=== PATIENT | female | born 1985 | race Caucasian/White ===

== ENCOUNTER 2018-02-25 18:53 | Emergency (ER) | payer BC ==
--- NOTE | 2018-02-25 19:30 | EDPHY ---
H & P Time Seen by Provider: 02/25/18 19:10 HPI/ROS: Chief complaint. Swelling to face and hands, rash HPI. Patient is a 32-year-old female diagnosed with Stefano's disease in about 6 months ago. It manifested as hives and itching. She is on chronic antihistamines. She has noticed unusual amount of swelling to her face neck and hands the last 2 days. She has hives on her left arm and left leg. Denies new skin products foods cleansers. No fever cough. Not sick. She has been using Pepcid, Shy, Benadryl with inadequate relief. No difficulty breathing or swallowing. ROS 10 systems were reviewed and negative with the exception of the elements mentioned in the history of present illness Past Medical/Surgical History: Stefano's disease Social History: Single, nonsmoker, no alcohol Smoking Status: Never smoked Physical Exam: General Appearance: Alert pleasant well-developed female mild distress vital signs are stable Eyes: Pupils equal and round no pallor or injection. ENT, pharynx without injection. No stridor. It is normal speech. Swallowing secretions Respiratory: There are no retractions, lungs are clear to auscultation. Cardiovascular: Regular rate and rhythm. Gastrointestinal: Abdomen is soft and nontender, no masses, bowel sounds normal. Neurological: Awake and alert, sensory and motor exams grossly normal. Skin: Erythematous hive type rash on the left forearm and some on the anterior left ankle. None on chest back abdomen Musculoskeletal: Neck is supple nontender. Extremities symmetrical, full range of motion. Psychiatric: Patient is oriented X 3, there is no agitation. Constitutional: Initial Vital Signs Temperature (C) 36.3 C 02/25/18 18:57 Heart Rate 85 02/25/18 18:57 Respiratory Rate 18 02/25/18 18:57 Blood Pressure 169/113 H 02/25/18 18:57 O2 Sat (%) 96 02/25/18 18:57 O2 Delivery Mode Room Air Allergies/Adverse Reactions: No Known Allergies Allergy (Unverified 02/25/18 18:54) Home Medications: Medication Instructions Recorded Shy Allergy 02/25/18 Benadryl 02/25/18 Pepcid 02/25/18 Probiotic 02/25/18 Vit D3-Vit K/Berberine/Hops 01/02/19 predniSONE 40 mg PO DAILY #8 tablet 02/25/18 Medical Decision Making Procedures: Prednisone orally ED Course/Re-evaluation: Re-evaluation at 8:50 p.m.. Patient is stable. Patient and I discussed laboratory evaluation, treatment plan including criteria for return importance of follow-up and further evaluation. She expresses understanding and agreement Differential Diagnosis: This appears to be mild allergic reaction. She has itching skin and hives. She has some facial swelling as well as swelling to her hands. I do not find any information about hives related Stefano's except that this patient tells me that is how her Stefano's disease was discovered as part of a workup for hives. I also considered congestive heart failure. - Data Points Laboratory Results: Laboratory Results 02/25/18 20:14 02/25/18 20:14 02/25/18 02/25/18 20:14 20:14 WBC 9.14 10^3/uL 10^3/uL (3.80-9.50) RBC 4.12 10^6/uL L 10^6/uL (4.18-5.33) Hgb 12.7 g/dL g/dL (12.6-16.3) Hct 38.2 % % (38.0-47.0) MCV 92.7 fL fL (81.5-99.8) MCH 30.8 pg pg (27.9-34.1) MCHC 33.2 g/dL g/dL (32.4-36.7) RDW 12.9 % % (11.5-15.2) Plt Count 272 10^3/uL 10^3/uL (150-400) MPV 8.5 fL L fL (8.7-11.7) Neut % (Auto) 55.8 % % (39.3-74.2) Lymph % (Auto) 33.9 % % (15.0-45.0) Stephenson % (Auto) 7.3 % % (4.5-13.0) Eos % (Auto) 2.4 % % (0.6-7.6) Baso % (Auto) 0.3 % % (0.3-1.7) Nucleat RBC Rel Count 0.0 % % (0.0-0.2) Absolute Neuts (auto) 5.09 10^3/uL 10^3/uL (1.70-6.50) Absolute Lymphs (auto) 3.10 10^3/uL H 10^3/uL (1.00-3.00) Absolute Monos (auto) 0.67 10^3/uL 10^3/uL (0.30-0.80) Absolute Eos (auto) 0.22 10^3/uL 10^3/uL (0.03-0.40) Absolute Basos (auto) 0.03 10^3/uL 10^3/uL (0.02-0.10) Absolute Nucleated RBC 0.00 10^3/uL 10^3/uL (0-0.01) Immature Gran % 0.3 % % (0.0-1.1) Immature Gran # 0.03 10^3/uL 10^3/uL (0.00-0.10) Sodium 137 mEq/L mEq/L (135-145) Potassium 3.9 mEq/L mEq/L (3.5-5.2) Chloride 104 mEq/L mEq/L (97-110) Carbon Dioxide 27 mEq/l mEq/l (22-31) Anion Gap 6 mEq/L mEq/L (6-14) BUN 10 mg/dL mg/dL (7-23) Creatinine 0.7 mg/dL mg/dL (0.6-1.0) Estimated GFR > 60 Glucose 99 mg/dL mg/dL (70-100) Calcium 9.4 mg/dL mg/dL (8.5-10.4) NT-Pro-B Natriuret Pep 158 pg/mL H pg/mL (0-125) TSH Pending Departure - Departure Disposition: Home, Routine, Self-Care Clinical Impression: Urticaria Allergic reaction Qualifiers: Encounter type: initial encounter Qualified Code(s): T78.40XA - Allergy, unspecified, initial encounter Condition: Good Instructions: Urticaria (ED) Additional Instructions: Prednisone 40 mg daily for next 4 days beginning tomorrow. We have given you a dose tonight in the emergency department. May continue to use Benadryl, Shy, Pepcid if necessary Return for worsening symptoms Follow up with your regular physician upon return home to [place] Prescriptions: predniSONE 40 mg PO DAILY #8 tablet
[2018-02-25 20:26] LABS: PLATELET COUNT 272 10^3/uL (150-400)
[2018-02-25] MEDS ORDERED: predniSONE 20 MG TAB PO ONE (21:02)
[2018-02-25 21:19] VITALS: BP 161/87
== END 2018-02-25 21:19 | disposition home or self-care (01) ==
DX: L50.9 Urticaria, unspecified (principal); T78.40XA Allergy, unspecified, initial encounter; E06.3 Autoimmune thyroiditis; Z79.52 Long term (current) use of systemic steroids
CPT/HCPCS: J7512